=== PATIENT | male | born 1960 | race Caucasian/White ===

== ENCOUNTER → 2018-08-20 | Day surgery (SDC) | payer OTHER | LOC: MSO 09:19 | DX: I85.00 Esophageal varices without bleeding (principal); K92.1 Melena; D50.0 Iron deficiency anemia secondary to blood loss (chronic); K29.70 Gastritis, unspecified, without bleeding; M06.9 Rheumatoid arthritis, unspecified; F41.9 Anxiety disorder, unspecified; L40.9 Psoriasis, unspecified; M19.90 Unspecified osteoarthritis, unspecified site; E11.9 Type 2 diabetes mellitus without complications; Z79.84 Long term (current) use of oral hypoglycemic drugs; Z86.010 Personal history of colon polyps | CPT/HCPCS: 00731; J2704; J7030 ==